=== PATIENT | male | born 1990 | race Caucasian/White ===

== ENCOUNTER 2020-11-27 13:42 | Emergency (ER) | payer OTHER, SELFPAY ==
[2020-11-27 13:50] VITALS: BP 143/72; PULSE 85; RESP 18; TEMP 36.9; O2SAT 99; BMI 28.0
--- NOTE | 2020-11-27 17:24 | PC.NURSE ---
pt with poor vision in R eye at baseline states he had an eye patch on over night and woke up with redness and swelling to eye lid. eye acuity exam complete. pt states mild discomfort and dryness to R eye
== END 2020-11-27 18:25 | disposition left against medical advice (07) ==
PROVIDERS: Emergency Provider Emergency Medicine
CPT/HCPCS: 99281